=== PATIENT | female | born 1970 | race Caucasian/White ===

== ENCOUNTER 2018-09-27 07:32 | Inpatient (IN) ==
--- NOTE | 2018-09-27 07:55 | Anesthesia Evaluation PreOp ---
Date of Encounter: 09/27/18 Time of Encounter: 08:07 - Past History Planned Operation: SYLVESTER Cardiac History: HTN, Hyperlipidemia Pulmonary History: NELI Dx (just diagnosed, doesn't have cpap machine yet) ON AIR DIRECTOR History: Denies Any Significant HX Other Medical History: Other (Endometriosis, pelvic pain, endometriosis, dysmenorrhea, morbid obesity) Anesthesia History: No Prior Anesthetic Complications, Past Anesthesia (cholecystectomy, laparoscopic surgery x3, ) : Yes Test: Negative Alcohol Use: none Drug use: none Medications and Allergies Allergy/AdvReac Type Severity Reaction Status Date / Time Sulfa (Sulfonamide Allergy Hives Unverified 09/08/18 14:16 Antibiotics) - Meds/Allergy Pre-op Review Medications Reviewed: Yes Allergies Reviewed: Yes Beta Blockers on Current Med List: Yes (metoprolol) If Beta Blockers taken, Date/Time (Last Dose taken): 09/27/2018 05:00 Anesthesia Results - Imaging EKG: image reviewed (NSR) Anesthesia Exam Height: 5'1" Weight: 108 kg NPO (# of Hours): >8 hours Pain Scale: 0 Pain Scale Used: Numeric (1 - 10) - HEENT Pupil (Motor): EOMI Mallampati: III Teeth: Normal Oral Opening: Less than or equal to 3 (possibly a difficult intubation, may be anterior, very small mouth opening) - ON AIR DIRECTOR ON AIR DIRECTOR Motor: Normal RUE, Normal LUE, Normal RLE, Normal LLE, Normal Face ON AIR DIRECTOR Sensory: Normal: RUE, LUE, RLE, LLE, Face - Cardiac Rhythm: Regular Murmur: None - Pulmonary Breath Sounds: bilateral Clear Respiratory Effort: Symmetrical Anesthesia Assess/Plan ASA Score: 3 Level of consciousness: Cooperative Anesthetic Plan: General Recovery Plan: PACU
[2018-09-27] MEDS ORDERED: Albuterol 2.5 MG/3 ML NEBULIZER IH ONE (07:56)
[2018-09-27] MEDS ORDERED: CeFAZolin Syr 2,000MG/20 ML 2,000 MG/20 ML SYRINGE IVPB ONE (07:56)
[2018-09-27] MEDS ORDERED: Ringers Solution, Lactated 1,000 ML IVC SCH (08:00)
[2018-09-27] MEDS ORDERED: cefOXitin 2,000 MG in Water for inj. (sterile) 20 ML IVP ONE (08:12)
[2018-09-27] MEDS ORDERED: *HR* FentaNYL (PF) 100 MCG/2 ML VIAL ONE (08:16)
[2018-09-27] MEDS ORDERED: *HR* Rocuronium Bromide 50 MG/5 ML VIAL ONE ×2 (08:16→10:20)
[2018-09-27] MEDS ORDERED: Lidocaine -MPF 2% 2 ML VIAL ONE (08:16)
[2018-09-27] MEDS ORDERED: Dexamethasone 4 MG/ML VIAL ONE (08:16)
[2018-09-27] MEDS ORDERED: *HR* Propofol 200 MG/20 ML VIAL IVP ONE (08:16)
[2018-09-27] MEDS ORDERED: Ondansetron 4 MG/2 ML VIAL ONE (08:16)
[2018-09-27] MEDS ORDERED: *HR* Midazolam HCl 2 MG/2 ML VIAL ONE (08:16)
[2018-09-27] MEDS ORDERED: *HR* Succinylcholine 200 MG/10 ML VIAL IVP ONE (08:16)
--- NOTE | 2018-09-27 08:58 | History & Physical Report ---
Date of Encounter: 09/27/18 Time of Encounter: 08:57 24 Hour HP Update - Instructions Instructions: If the History and Physical is less than 30 days old and was completed prior to A.M. admission and or procedure and has NOT been updated on calendar day of procedure please complete this update prior to performing procedure. - Update Patient reports changes in Medical Condition: No Changes in examination, assessment, or condition: No Changes in Medication: No Preop tests/diagnostics Reviewed: Yes Pre-Op MRSA Screen: Negative Surgery Remains Indicated: Yes Consent for Planned Operative Procedure(s) Verified: Yes - Pre-Operative Checklist Preoperative Checklist Indicated: Yes Prophylactic Antibiotic Ordered: Yes Home Medications Include Beta Shasta: No Beta Shasta Taken Today (Day of Surgery): No Beta Shasta Taken Yesterday (Day Prior to Surgery): No Is VTE Prophylaxis Indicated?: Yes
[2018-09-27] MEDS ORDERED: *HR* PHENYLEPHRINE 1,000 MCG/10 ML SYRINGE IVP ONE (09:38)
[2018-09-27] MEDS ORDERED: EPHEDrine 50 MG/ML VIAL ONE (09:45)
[2018-09-27] MEDS ORDERED: Ketorolac 30 MG/ML VIAL ONE (10:49)
--- NOTE | 2018-09-27 11:19 | OB/GYN Procedure Note ---
Hysterectomy - Diagnosis Date of procedure: 09/27/18 Hysterectomy pre-op: chronic pelvic pain, other (History of pelvic endometriosis, pelvic adhesions) Post-op diagnosis: same - Procedure Hysterectomy procedure: total abdominal hysterectomy, other (Lysis of adhesions), bilateral salpingectomy Surgeon: Lico Hough Was there an senior assistant manager present: Yes Bilingual Call Center Representative: Madalyn Billingsley Anesthesia provider: Jose Kumar Anesthesia Type: General Estimated blood loss (cc): 50 Complications: none Fluids: crystalloid Urine output (cc): 100 Specimens: right ovary, uterus, cervix, left ovary, right fallopian tube, left fallopian tube Findings: Upon entering cavity patient had dense pelvic adhesions and endometriotic implants. Disposition: floor Narrative: This patient was taken to the operating room with IV in place. She was given general anesthesia, she was then prepped and draped in the usual sterile fashion. Patient's pannus had been taped up. Patient is morbidly obese requiring multiple hands to hold up the pannus. Patient has a history of multiple abdominal surgeries. Once patient had been prepped and draped a Pfannenstiel incision was made. It was carried sharply through the face of any tissue until the fascial layers reached. The fascia was then nicked in midline and incised bilaterally with Hart scissors. Was then dissected vertically for adequate exposure. There was dense scarring taking down the fascia. This required meticulous work. Bowel was firmly adherent to the anterior abdominal wall. This was taken down. Via sharp and blunt dissection. Once the fascia then taken down we were able to get into the abdominal cavity again and there was dense adhesions. These were taken down slowly. We entered into the abdominal cavity. The bladder was firmly adherent and could not be taken down due to the scarring. At this time patient was placed in a steep Trendelenburg and her legs were brought down in order to give us visualization. An O'Rolando- O'Barrera retractor was then placed and the bowel was packed away nicely. At this point the uterus itself was grasped with 2 curved Martha's. It was then elevated and the round ligature clamp cut suture ligated 2 bilaterally. The infundibulopelvic ligaments were then isolated there are clamped cut and suture ligated with 0 Vicryl suture 2. There is excellent hemostasis. Uterine arteries were then skeletonized bilaterally and they were clamped cut and suture ligated. We continued down the sides of the uterus. This was very difficult due to the amount of tissue in this patient. Very difficult to get into this area. She is very deep. We continued down the size of the uterus with straight Cindy's clamp and cutting and suture ligating with. There was excellent hemostasis throughout this case. This patient was a Jehovah witness and did not wish any blood. At this time we reached the cervical vaginal margin at which time 2 curved pains were placed around the cervix. They were then clamped cut suture ligated. The cervix was amputated from the vaginal cuff. The vaginal cuff itself was closed by grasping it with a [place] elevated closing the midportion of the cuff with [id number]. Again there was excellent hemostasis. At this point the pelvic cavity was then rinsed thoroughly with sterile water 2. There was actually no bleeding noted. The instrument was removed from the abdominal cavity. Sponge needle Troy counts correct 2. The fascia was then closed with loop 0 PDS 2. The suprafascial region was rinsed thoroughly with sterile water 2 BLEEDERS cauterized. Subcutaneous stitches were placed to reapproximate the patient's tissue. The skin was closed cindy. A EDGARD dressing was placed. Estimated blood loss was 50 mL. Specimen was uterus cervix bilateral ovaries and tubes.
[2018-09-27] MEDS: *HR* HYDROmorphone (PF) 1 MG/ML SYRINGE IVP PRN ×4 (11:26→12:02)
[2018-09-27] MEDS ORDERED: *HR* OxyCODONE Immed Rel 5 MG TABLET PO PRN (11:53)
--- NOTE | 2018-09-27 12:27 | Anesthesia Evaluation Post Op ---
Date of Encounter: 09/27/18 Time of Encounter: 12:25 - Vital Signs Vital Signs: Vital Signs/O2 Sat/Glucose, Most Current Temp Pulse Resp BP Pulse Ox 09/27/18 12:14 97.4 F L 79 16 128/91 97 09/27/18 12:04 81 16 129/96 99 09/27/18 11:54 82 16 132/89 97 09/27/18 11:44 97.1 F L 80 16 124/89 100 09/27/18 11:34 80 18 130/86 100 09/27/18 11:24 80 16 127/87 96 09/27/18 11:14 96.9 F L 87 16 128/83 100 09/27/18 08:35 98.3 F 75 18 116/81 95 - Lungs Lungs: Clear Ascult./Percussion - Airway Airway: Non-obstructed - Cardiovascular Regular Rate - Mental Status Mental Status: Alert & Oriented, Answers Appropriately - Pain Pain Scale: 0 - Nausea Vomiting Nausea Vomiting: Not Present - Hydration Hydration: Ice chips - Discharge PostOp Status: Transfer Patient to floor
[2018-09-27] MEDS ORDERED: Ondansetron 4 MG/2 ML VIAL IVP PRN (12:54)
[2018-09-27] MEDS ORDERED: Ringers Solution, Lactated 1,000 ML ONE (13:35)
[2018-09-27] MEDS: *HR* HYDROcodone/Acet 5/325 mg TABLET PO PRN ×2 (15:23→20:14)
[2018-09-27] MEDS: Famotidine 20 MG TABLET PO SCH (20:14)
[2018-09-27] MEDS: Ibuprofen 600 MG TABLET PO PRN (20:14)
[2018-09-27] MEDS: Ringers Solution, Lactated 1,000 ML IVC SCH (21:27)
[2018-09-28] MEDS: Ibuprofen 600 MG TABLET PO PRN ×3 (04:23→20:10)
[2018-09-28] MEDS: *HR* HYDROcodone/Acet 5/325 mg TABLET PO PRN ×3 (04:23→20:10)
[2018-09-28] MEDS: Ringers Solution, Lactated 1,000 ML IVC SCH (05:42)
[2018-09-28] MEDS: *HR* Heparin 5,000 UNIT/ML VIAL SQ SCH ×2 (06:18→19:16)
[2018-09-28 08:09] LABS: Basophils % 0.1 %; Hematocrit 36.8 % (35.3-44.9); Hemoglobin 12.1 g/dL (11.5-15.4); Immature Granulocytes % 0.4 % (0-4); Lymphocytes # 1.5 K/mcL (0.6-4.6); Lymphocytes % 15.3 %; Mean Corpuscular HGB Conc 32.9 g/dL (31.6-35.5); Mean Corpuscular Volume 91.3 fL (83.0-100.0); Mean Platelet Volume 9.1 fL (9.4-12.4); Monocytes # 0.8 K/mcL (0.0-1.3); Monocytes % 7.9 %; Neutrophils # 7.6 K/mcL (1.6-8.9); Platelet Count 316 K/mcL (140-400); Red Blood Count 4.03 M/mcL (3.82-4.97); Red Cell Distribution Width 13.7 % (11.5-14.5); Segmented Neutrophils % 76.3 %
[2018-09-28] MEDS: amLODIPine 5 MG TABLET PO SCH (08:27)
[2018-09-28] MEDS: BuPROPion SR (12 HR) 100 MG TABLET PO SCH (08:27)
[2018-09-28] MEDS: Famotidine 20 MG TABLET PO SCH ×2 (08:27→20:10)
--- NOTE | 2018-09-28 11:44 | Discharge Summary ---
Date of Encounter: 09/28/18 Time of Encounter: 11:44 (Patient doing well. No complaints today. Patient considering going home this evening. She will do this if she has a ride. Patient has met milestones for discharge) - Discharge Diagnosis (1) Menorrhagia with irregular cycle Priority: Secondary Status: Acute (2) Pelvic pain Priority: Primary Status: Acute (3) Pelvic peritoneal endometriosis Priority: Secondary Status: Acute (4) Pelvic peritoneal adhesions, female Priority: Secondary Status: Acute - Discharge Medications Prescriptions: No Action Spironolactone [Aldactone] 25 mg PO DAILY Montelukast [Singulair] 10 mg PO QAM Nabumetone [Relafen] 500 mg PO DAILY Metoprolol Tartrate 50 mg PO BID Fluticasone Propionate Nasal [Flonase] 2 spray NS DAILY Diclofenac Sodium 1 appl TP AD PRN PRN Reason: Pain Cetirizine HCl [Allergy Relief] 10 mg PO DAILY buPROPion HCl [Bupropion HCl Sr] 200 mg PO QAM Amlodipine Besylate 10 mg PO QAM Cholecalciferol (Vitamin D3) [Vitamin D3] 1,000 units PO DAILY Home Medications: Amlodipine Besylate 10 mg PO QAM 09/27/18 [History] Cetirizine HCl [Allergy Relief] 10 mg PO DAILY 09/27/18 [History] Cholecalciferol (Vitamin D3) [Vitamin D3] 1,000 units PO DAILY 09/27/18 [History] Diclofenac Sodium 1 appl TP AD PRN 09/27/18 [History] Fluticasone Propionate Nasal [Flonase] 2 spray NS DAILY 09/27/18 [History] Metoprolol Tartrate 50 mg PO BID 09/27/18 [History] Montelukast [Singulair] 10 mg PO QAM 09/27/18 [History] Nabumetone [Relafen] 500 mg PO DAILY 09/27/18 [History] Spironolactone [Aldactone] 25 mg PO DAILY 09/27/18 [History] buPROPion HCl [Bupropion HCl Sr] 200 mg PO QAM 09/27/18 [History] Allergies/Adverse Reactions: Allergy/AdvReac Type Severity Reaction Status Date / Time Sulfa (Sulfonamide Allergy Hives Unverified 09/27/18 08:43 Antibiotics) Data Procedures and tests throughout hospitalization: Laboratory Tests 09/28/18 07:35 WBC 10.0 RBC 4.03 Hgb 12.1 Hct 36.8 MCV 91.3 MCH 30.0 MCHC 32.9 RDW 13.7 Plt Count 316 MPV 9.1 L Immature Gran % 0.4 Seg Neutrophils % 76.3 Lymphocytes % 15.3 Monocytes % 7.9 Eosinophils % 0.0 Basophils % 0.1 Neutrophils # 7.6 Lymphocytes # 1.5 Monocytes # 0.8 Eosinophils # 0.0 Basophils # 0.0 Labs on day of discharge: Labs from last 24 hours 09/28/18 07:35 WBC 10.0 RBC 4.03 Hgb 12.1 Hct 36.8 MCV 91.3 MCH 30.0 MCHC 32.9 RDW 13.7 Plt Count 316 MPV 9.1 L Immature Gran % 0.4 Seg Neutrophils % 76.3 Lymphocytes % 15.3 Monocytes % 7.9 Eosinophils % 0.0 Basophils % 0.1 Neutrophils # 7.6 Lymphocytes # 1.5 Monocytes # 0.8 Eosinophils # 0.0 Basophils # 0.0 Date of admission: 09/27/18 12:36 Primary care physician: Monalisa Faulkner CNP Discharging clinician: Lico Hough Anticipated date of discharge: 09/28/18 - Patient Status Disposition: Home, Self-Care Condition: Good Functional capacity at discharge: independent ambulation Overall status at discharge: patient is progressing back to baseline - Discharge Instructions Follow Up With: Monalisa Faulkner CNP [Primary Care Provider] - Additional Instructions: Follow-up in office 1 week for staple removal. Call for appointment. Instructions given for no heavy lifting or driving. Pt should continue ambulation at home. 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 Attestation: Total time spent providing and/or coordinating discharge services: Exam - Constitutional Vitals: Temp Pulse Resp BP Pulse Ox 97.5 F L 86 16 119/80 97 09/28/18 08:25 09/28/18 08:25 09/28/18 08:25 09/28/18 08:25 09/28/18 08:25 General appearance IM: A&O X 3, morbidly obese, pleasant, no acute distress - Respiratory Respiratory exam: Present: CTAB - Cardiovascular Cardiovascular exam IM: Present: RRR - GI/Abdominal GI/Abdominal exam IM: normal bowel sounds Incision: normal, dry, intact Additional comments: Instructions given on how to take care of incision with pannus - Rectal Rectal exam: deferred - External exam: normal external exam - Extremities Exam Extremities exam IM: Present: full ROM, normal inspection - Neurological Exam Neurological exam: alert, oriented X3 - VTE Documentation of Mechanical Device: Intermittent pneumatic compression device
[2018-09-28] MEDS: Spironolactone 25 MG TABLET PO SCH (19:27)
[2018-09-29] MEDS: *HR* HYDROcodone/Acet 5/325 mg TABLET PO PRN (03:05)
[2018-09-29] MEDS: Ibuprofen 600 MG TABLET PO PRN (03:05)
[2018-09-29] MEDS: *HR* Heparin 5,000 UNIT/ML VIAL SQ SCH (07:00)
--- NOTE | 2018-09-29 08:22 | Discharge Summary ---
Date of Encounter: 09/29/18 Time of Encounter: 08:00 - Discharge Diagnosis (1) S/P SYLVESTER-BSO Priority: Primary Status: Acute Comments: 47yo POD#2 from SYLVESTER/BSO Voiding independently without difficulty Tolerating a regular diet without n/v/d Passing flatus, denies si/sx of constipation, blood in stool Ambulating independently but cautiously, appropriate for post-operative day Normal labs on POD#1, completed 24hr antibiotics (ancef continued) EDGARD dressing placed on patient abdomen, cindy done Follow up scheduled for patient in 1 week for staple removal Controlled on PO pain medication (rx given to patient) Dispo: OK to DC patient to home with scheduled f/u for staple removal. DC to home with pain medication (rx by Dr. Hough on POD#1). Discussed discharge instructions as well as appropriate follow up. MD CHEPE - Discharge Medications Prescriptions: New cephALEXin [Cephalexin] 500 mg PO Q8HR 7 Days #21 tablet Oxycodone HCl/Acetaminophen [Percocet 5-325 mg Tablet] 2 each PO 2-3XD PRN 7 Days #30 tablet PRN Reason: pain No Action Spironolactone [Aldactone] 25 mg PO DAILY Montelukast [Singulair] 10 mg PO QAM Nabumetone [Relafen] 500 mg PO DAILY Metoprolol Tartrate 50 mg PO BID Fluticasone Propionate Nasal [Flonase] 2 spray NS DAILY Diclofenac Sodium 1 appl TP AD PRN PRN Reason: Pain Cetirizine HCl [Allergy Relief] 10 mg PO DAILY buPROPion HCl [Bupropion HCl Sr] 200 mg PO QAM Amlodipine Besylate 10 mg PO QAM Cholecalciferol (Vitamin D3) [Vitamin D3] 1,000 units PO DAILY Home Medications: Amlodipine Besylate 10 mg PO QAM 09/27/18 [History] Cetirizine HCl [Allergy Relief] 10 mg PO DAILY 09/27/18 [History] Cholecalciferol (Vitamin D3) [Vitamin D3] 1,000 units PO DAILY 09/27/18 [History] Diclofenac Sodium 1 appl TP AD PRN 09/27/18 [History] Fluticasone Propionate Nasal [Flonase] 2 spray NS DAILY 09/27/18 [History] Metoprolol Tartrate 50 mg PO BID 09/27/18 [History] Montelukast [Singulair] 10 mg PO QAM 09/27/18 [History] Nabumetone [Relafen] 500 mg PO DAILY 09/27/18 [History] Spironolactone [Aldactone] 25 mg PO DAILY 09/27/18 [History] buPROPion HCl [Bupropion HCl Sr] 200 mg PO QAM 09/27/18 [History] Oxycodone HCl/Acetaminophen [Percocet 5-325 mg Tablet] 2 each PO 2-3XD PRN 7 Days #30 tablet 09/28/18 [Rx] cephALEXin [Cephalexin] 500 mg PO Q8HR 7 Days #21 tablet 09/28/18 [Rx] Allergies/Adverse Reactions: Allergy/AdvReac Type Severity Reaction Status Date / Time Sulfa (Sulfonamide Allergy Hives Unverified 09/27/18 08:43 Antibiotics) Data Procedures and tests throughout hospitalization: Laboratory Tests 09/28/18 07:35 WBC 10.0 RBC 4.03 Hgb 12.1 Hct 36.8 MCV 91.3 MCH 30.0 MCHC 32.9 RDW 13.7 Plt Count 316 MPV 9.1 L Immature Gran % 0.4 Seg Neutrophils % 76.3 Lymphocytes % 15.3 Monocytes % 7.9 Eosinophils % 0.0 Basophils % 0.1 Neutrophils # 7.6 Lymphocytes # 1.5 Monocytes # 0.8 Eosinophils # 0.0 Basophils # 0.0 Labs on day of discharge: no Date of admission: 09/27/18 12:36 Primary care physician: Monalisa Faulkner CNP Discharging clinician: Tereza Mendoza Anticipated date of discharge: 09/29/18 - Patient Status Disposition: Home, Self-Care Condition: Good - Discharge Instructions Follow Up With: Monalisa Faulkner CNP [Primary Care Provider] - Additional Instructions: Follow-up in office 1 week for staple removal. Call for appointment. Instructions given for no heavy lifting or driving. Pt should continue ambulation at home. 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: Total time spent providing and/or coordinating discharge services: Exam - Constitutional Vitals: Temp Pulse Resp BP Pulse Ox 97.8 F 84 18 114/87 95 09/29/18 03:12 09/29/18 03:12 09/29/18 03:12 09/29/18 03:12 09/29/18 03:12 General appearance IM: A&O X 3, morbidly obese, pleasant, no acute distress - Respiratory Respiratory exam: Present: CTAB - Cardiovascular Cardiovascular exam IM: Present: RRR - GI/Abdominal GI/Abdominal exam IM: normal bowel sounds Incision: normal, dry, intact - Rectal Rectal exam: deferred - Extremities Exam Extremities exam IM: Present: normal inspection - Neurological Exam Neurological exam: CN II-XII intact, oriented X3 - VTE Documentation of Mechanical Device: Intermittent pneumatic compression device
[2018-09-29 09:06] VITALS: BP 117/78
[2018-09-29] MEDS: Spironolactone 25 MG TABLET PO SCH (10:04)
[2018-09-29] MEDS: amLODIPine 5 MG TABLET PO SCH (10:05)
[2018-09-29] MEDS: Famotidine 20 MG TABLET PO SCH (10:06)
[2018-09-29] MEDS: BuPROPion SR (12 HR) 100 MG TABLET PO SCH (10:06)
== END 2018-09-29 11:16 | disposition home or self-care (01) | DRG 742 ==
LOC: SAMDAY 07:32 → 1NENUOBS 12:36
PROVIDERS: ADMIT Obstetrics & Gynecology; ATTEND Obstetrics & Gynecology